=== PATIENT | female | born 1950 | race Caucasian/White ===

== ENCOUNTER 2018-04-11 10:31 | Outpatient (CLI) | payer MEDICARE | END 2018-04-11 23:59 | disposition home or self-care (01) | LOC: CARD DIAG 10:31 | PROVIDERS: ATTEND Family Medicine | DX: I08.0 Rheumatic disorders of both mitral and aortic valves (principal); I65.23 Occlusion and stenosis of bilateral carotid arteries; R55 Syncope and collapse; E87.1 Hypo-osmolality and hyponatremia | CPT/HCPCS: 70544; 70551; 93306; 93880 ==